=== PATIENT | female | born 1980 | race Caucasian/White ===

== ENCOUNTER 2018-10-20 09:29 | Emergency (ER) | payer MEDICAID ==
--- NOTE | 2018-10-20 09:54 | EDM.PDOC ---
ED HPI GENERAL MEDICAL PROBLEM - General Chief Complaint: Respiratory Problem Stated Complaint: RESPIRATORY ISSUES Time Seen by Provider: 10/20/18 09:53 Source of Information: Reports: Patient History Limitations: Reports: No Limitations - History of Present Illness INITIAL COMMENTS - FREE TEXT/NARRATIVE: 38-year-old female presents the ED for evaluation of severe paroxysmal cough to the point of emesis 1 this morning. For hoarse voice. She claims she's been ill with upper respiratory tract infection and coughing for better part of 2 weeks. Questionable intermittent fever and chills. Dizzy with standing this morning. Appetite has not been the best. Denies diarrhea. Planes of left ear pain. Sore throat paroxysmal nonproductive cough. She is currently on Augmentin 875 mg/125 mg tablets twice a day started 2 days ago the clinic. She is also on Tessalon Perles which she's not finding all that helpful in terms of controlling cough. She did not have a flu shot this year. Onset: Gradual Onset Date: 10/06/18 Duration: Week(s):, Getting Worse Location: Reports: Face (Left ear pain), Chest Quality: Reports: Ache (Left ear ache), Other (Leota Randy nonproductive cough) Severity: Moderate Improves with: Reports: None Worsens with: Reports: Other (Worse with lying down.) Context: Denies: Activity, Exercise, Lifting, Sick Contact, Trauma, Other Associated Symptoms: Reports: Chest Pain, Cough, Fever/Chills, Loss of Appetite , Malaise (Nonproductive), Nausea/Vomiting, Shortness of Breath, Weakness. 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 - Related Data Allergies Allergy/AdvReac Type Severity Reaction Status Date / Time erythromycin base Allergy Rash Verified 10/20/18 09:40 ibuprofen [From Motrin] Allergy Anaphylactic Verified 10/20/18 09:40 Shock Iodinated Contrast- Oral and Allergy Anaphylactic Verified 10/20/18 09:40 IV Dye Shock ketorolac [From Toradol] Allergy Anaphylactic Verified 10/20/18 09:40 Shock meloxicam [From Mobic] Allergy Anaphylactic Verified 10/20/18 09:40 Shock prednisone Allergy Anaphylactic Verified 10/20/18 09:40 Shock tramadol Allergy Anaphylactic Verified 10/20/18 09:40 Shock iv contrast Allergy Anxiety Uncoded 10/20/18 09:40 Home Meds: Home Meds SUMAtriptan [Imitrex] 25 mg PO DAILY PRN 05/07/18 [History] Amoxicillin 875 mg PO BID 10/20/18 [History] Benzonatate [Tessalon Perle] 100 mg PO DAILY 10/20/18 [History] Hydrocodone/Chlorphen P-Stirex [Tussionex Pennkinetic Susp] 5 ml PO Q12H PRN # 60 ml 10/20/18 [Rx] Past Medical History HEENT History: Reports: None Cardiovascular History: Reports: Arrhythmia, Other (See Below) Other Cardiovascular History: low blood pressure Respiratory History: Reports: Asthma Other Respiratory History: childhood asthma Gastrointestinal History: Reports: None Genitourinary History: Reports: 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: Reports: None, Musculoskeletal History: Reports: Back Pain, Chronic Other Musculoskeletal History: lumbago Neurological History: Reports: Migraines Psychiatric History: Reports: Anxiety, None, Panic Attack Endocrine/Metabolic History: Reports: None, Obesity/BMI 30+ Hematologic History: Reports: Blood Transfusion(s), None Immunologic History: Reports: None Oncologic (Cancer) History: Reports: None Dermatologic History: Reports: None - Infectious Disease History Infectious Disease History: Reports: None - Past Surgical History Musculoskeletal Surgical History: Reports: Arthroscopic Procedure, Shoulder Surgery Social & Family History - Family History Family Medical History: Noncontributory - Caffeine Use Caffeine Use: Reports: Coffee, None - Living Situation & Occupation Living situation: Reports: Single, with Significant Other (Fiance) Occupation: Unemployed ED ROS GENERAL - Review of Systems Review Of Systems: See Below Constitutional: Reports: Fever, Chills, Malaise, Weakness, Fatigue, Decreased Appetite HEENT: Reports: Ear Pain, Sinus Problem (Sinus congestion clinically). Denies: Glasses, Hearing Loss Respiratory: Reports: Shortness of Breath, Cough. Denies: Wheezing, Pleuritic Chest Pain, Sputum, Hemoptysis Cardiovascular: Reports: Chest Pain (Central chest pain with coughing), Dyspnea on Exertion Endocrine: Reports: Fatigue GI/Abdominal: Reports: Decreased Appetite, Vomiting (Vomited once this morning from coughing a posttussive cough) : Reports: No Symptoms Musculoskeletal: Reports: No Symptoms Skin: Reports: No Symptoms Neurological: Reports: No Symptoms Psychiatric: Reports: No Symptoms ED EXAM, GENERAL - Physical Exam Exam: See Below Exam Limited By: No Limitations General Appearance: Alert, WD/WN, No Apparent Distress, Other (Afebrile. Vital signs are normal. Blood pressures a little on the low side at 94/43 she states she normally runs quite low.) Eye Exam: Bilateral Eye: Normal Inspection Ears: Normal TMs, Other (She has pain to touch the left earlobe and straining the ear canal but no signs of an otitis externa or otitis media on exam.) Throat/Mouth: Other (Oropharynx is free of infection. Prominence of her taste buds is noted on the posterior tongue.) Neck: Normal Inspection, Supple, Non-Tender, Full Range of Motion. No: Lymphadenopathy (L), Lymphadenopathy (R) Respiratory/Chest: No Respiratory Distress, Lungs Clear, Normal Breath Sounds, No Accessory Muscle Use Cardiovascular: Normal Peripheral Pulses, Regular Rate, Rhythm, No Edema, No Murmur, No Rub Peripheral Pulses: 3+: Posterior Tibial (L), Posterior Tibial (R), Dorsalis Pedis (L), Dorsalis Pedis (R) GI/Abdominal: Normal Bowel Sounds, Soft, Non-Tender, No Organomegaly, No Abnormal Bruit, No Mass, Pelvis Stable Back Exam: Normal Inspection, Full Range of Motion. No: CVA Tenderness (L), CVA Tenderness (R) Extremities: Normal Inspection, Normal Range of Motion, Non-Tender, No Pedal Edema Neurological: Alert, Oriented, CN II-XII Intact, Normal Cognition Psychiatric: Normal Affect, Normal Mood Skin Exam: Warm, Dry, Intact, Normal Color, No Rash Course - Vital Signs Last Recorded V/S: Last Vital Signs Temp 36.9 C 10/20/18 09:41 Pulse 74 10/20/18 09:41 Resp 18 10/20/18 09:41 BP 94/43 L 10/20/18 09:41 Pulse Ox 98 10/20/18 09:41 - Orders/Labs/Meds Orders: Active Orders 24 hr Category Date Time Status Chest 1V Frontal [CR] Stat Exams 10/20/18 10:05 Taken - Radiology Interpretation Free Text/Narrative:: 38-year-old female presents to the ED with a paroxysmal nonproductive cough for the better part of 2 weeks. The point of emesis 1 this morning. She started on Augmentin 875/125 mg tablets for bronchitis 2 days ago. She is using Tessalon Perles for cough relief which are all helping all that much. She's afebrile since presentation. Clinically she does have some sinus congestion. Complaining of ear pain but examination is normal. Oropharynx is normal. Chest is clear to stage percussion without any wheezes or adventitial sounds. Plan influenza screen. One view chest to be obtained. - Re-Assessments/Exams Free Text/Narrative Re-Assessment/Exam: 10/20/18 10:24 patient refused measles swab for influenza. Therefore the order was canceled. One view chest x-ray is been completed. Cardiac silhouette is within normal limits. Right pulmonary artery is easily visible. There is no consolidated infiltrate to suggest a pneumonia. Plan continue her current antibiotic regime which was just started 2 days ago and is just starting to work. Will give her Tussionex cough syrup 5 mils every 12 hours when necessary for cough relief. Departure - Departure Time of Disposition: 10:25 Disposition: Home, Self-Care 01 Condition: Fair Clinical Impression: Bronchitis - Discharge Information *PRESCRIPTION DRUG MONITORING PROGRAM REVIEWED*: Not Applicable *COPY OF PRESCRIPTION DRUG MONITORING REPORT IN PATIENT ADRI: Not Applicable Prescriptions: Hydrocodone/Chlorphen P-Stirex [Tussionex Pennkinetic Susp] 5 ml PO Q12H PRN # 60 ml PRN Reason: cough relief Instructions: Acute Bronchitis, Adult Referrals: Arcadio Anderson PA-C [Primary Care Provider] - Forms: ED Department Discharge Additional Instructions: Evaluation the emergent today in regards to viral upper respiratory tract infection with sinus congestion and bronchitis. Influenza screen was not done as you could not tolerate the nasal swabs. Test x-ray done is within normal limits showing no signs of pneumonia. But at this time is therefore to continue the Augmentin that was started in the clinic 2 days ago as it is just starting to work today. This will help with sinus infection and bronchitis. Cough relief will be changed to Tussionex 5 mils every 12 hours needed for cough relief. Suggest taking miss a good hour before went to bed as it takes an hour to work. It can be taken with food in the stomach. Expect gradual improvement over the next 3 days. - My Orders Last 24 Hours: My Active Orders 10/20/18 10:05 Chest 1V Frontal [CR] Stat - Assessment/Plan Last 24 Hours: My Active Orders 10/20/18 10:05 Chest 1V Frontal [CR] Stat
--- NOTE | 2018-10-21 08:24 | CR ---
Chest: Portable view of the chest was obtained. Comparison: No prior chest x-ray is available. Heart size and mediastinum are normal. Lungs are clear. Bony structures appear unremarkable. Surgical clips are seen from prior cholecystectomy. Impression: 1. Nothing acute is appreciated on portable chest x-ray. Diagnostic code #2
== END 2018-10-20 10:42 | disposition home or self-care (01) ==
LOC: JD.ED 09:29
DX: J40 Bronchitis, not specified as acute or chronic (principal); H92.02 Otalgia, left ear; G43.909 Migraine, unspecified, not intractable, without status migrainosus; F17.210 Nicotine dependence, cigarettes, uncomplicated; Z79.2 Long term (current) use of antibiotics; Z79.899 Other long term (current) drug therapy; Z88.1 Allergy status to other antibiotic agents; Z88.6 Allergy status to analgesic agent; Z91.041 Radiographic dye allergy status; Z88.5 Allergy status to narcotic agent; Z88.8 Allergy status to other drugs, medicaments and biological substances; Z98.890 Other specified postprocedural states
CPT/HCPCS: 71045; 71045-26; 99283

== ENCOUNTER 2018-11-14 17:31 | Emergency (ER) | payer MEDICAID ==
--- NOTE | 2018-11-14 18:00 | EDM.PDOC ---
ED HPI GENERAL MEDICAL PROBLEM - General Chief Complaint: Respiratory Problem Stated Complaint: COUGH Time Seen by Provider: 11/14/18 17:49 Source of Information: Reports: Patient, RN Notes Reviewed - History of Present Illness INITIAL COMMENTS - FREE TEXT/NARRATIVE: 38 year old female with cough, sinus holly for about 3 wks, was getting better and than about 4 days ago started getting much worse, Has been on amox., zpack , doxy. Seen at clinic today, prescribed an inhaler and told to use mucinex. Frustrated that she is not better having just barely started those meds. chest/ear Pain Score (Numeric/FACES): 6 - Related Data Allergies Allergy/AdvReac Type Severity Reaction Status Date / Time erythromycin base Allergy Rash Verified 11/14/18 17:56 ibuprofen [From Motrin] Allergy Anaphylactic Verified 11/14/18 17:56 Shock Iodinated Contrast- Oral and Allergy Anaphylactic Verified 11/14/18 17:56 IV Dye Shock ketorolac [From Toradol] Allergy Anaphylactic Verified 11/14/18 17:56 Shock meloxicam [From Mobic] Allergy Anaphylactic Verified 11/14/18 17:56 Shock prednisone Allergy Anaphylactic Verified 11/14/18 17:56 Shock tramadol Allergy Anaphylactic Verified 11/14/18 17:56 Shock iv contrast Allergy Anxiety Uncoded 11/14/18 17:56 Home Meds: Home Meds SUMAtriptan [Imitrex] 25 mg PO DAILY PRN 05/07/18 [History] Ondansetron [Zofran ODT] 8 mg PO Q6H PRN 11/14/18 [History] guaiFENesin/Phenylephrine HCl [Mucinex Cold] 5 ml PO BID 11/14/18 [History] Past Medical History HEENT History: Reports: None Cardiovascular History: Reports: Arrhythmia, Other (See Below) Other Cardiovascular History: low blood pressure Respiratory History: Reports: Asthma Other Respiratory History: childhood asthma Gastrointestinal History: Reports: None Genitourinary History: Reports: None REHAB TECH History: Reports: None, Musculoskeletal History: Reports: Back Pain, Chronic Other Musculoskeletal History: lumbago Neurological History: Reports: Migraines Psychiatric History: Reports: Anxiety, None, Panic Attack Endocrine/Metabolic History: Reports: None, Obesity/BMI 30+ Hematologic History: Reports: Blood Transfusion(s), None Immunologic History: Reports: None Oncologic (Cancer) History: Reports: None Dermatologic History: Reports: None - Infectious Disease History Infectious Disease History: Reports: None - Past Surgical History Musculoskeletal Surgical History: Reports: Arthroscopic Procedure, Shoulder Surgery Social & Family History - Family History Family Medical History: Noncontributory - Caffeine Use Caffeine Use: Reports: Coffee, None - Living Situation & Occupation Living situation: Reports: Single, with Significant Other (Fiance) Occupation: Unemployed ED ROS GENERAL - Review of Systems Review Of Systems: See Below Constitutional: Reports: Fever, Chills HEENT: Reports: Rhinitis, Sinus Problem, Throat Pain Respiratory: Reports: Cough, Sputum (scant). Denies: Shortness of Breath, Wheezing Cardiovascular: Reports: Chest Pain (central chest with coughing) GI/Abdominal: Denies: Abdominal Pain, Diarrhea, Vomiting Musculoskeletal: Reports: Other (some achiness) Skin: Denies: Rash ED EXAM, GENERAL - Physical Exam Exam: See Below General Appearance: Alert, Mild Distress Eye Exam: Bilateral Eye: PERRL Ears: Normal External Exam, Normal Canal, Normal TMs Throat/Mouth: Normal Inspection Head: Atraumatic Neck: Supple, Full Range of Motion Respiratory/Chest: No Respiratory Distress, Lungs Clear, Normal Breath Sounds. No: Rhonchi, Wheezing Cardiovascular: Tachycardia Back Exam: No: CVA Tenderness (L), CVA Tenderness (R) Extremities: Normal Inspection. No: Pedal Edema, Leg Pain Neurological: Alert, Oriented, No Motor/Sensory Deficits Skin Exam: Warm, Dry, Intact, Normal Color Course - Vital Signs Last Recorded V/S: Last Vital Signs Temp 98.4 F 11/14/18 17:48 Pulse 108 H 11/14/18 17:48 Resp 18 11/14/18 17:48 BP 114/80 11/14/18 17:48 Pulse Ox 98 11/14/18 17:48 - Re-Assessments/Exams Free Text/Narrative Re-Assessment/Exam: 11/14/18 19:56 Flu screen at clinic earlier today was neg. Lungs are clear, CXR not clinically indicated, sats are good, she is breathing and moving air comfortably. She is cycling one virus after another, spent considerable time explaining to her that her current sx are a new infection, not what she caught 3 wks ago, discharge instr. as documented. Departure - Departure Time of Disposition: 18:11 Disposition: Home, Self-Care 01 Condition: Fair Clinical Impression: Viral upper respiratory illness - Discharge Information Instructions: Upper Respiratory Infection, Adult, [id number] Referrals: Arcadio Anderson PA-C [Primary Care Provider] - Forms: ED Department Discharge Additional Instructions: continue to use the mucinex, inhaler to help treat your symptoms of the bronchitis caused by the new viral infection you have on top of what you had 2 to 3 weeks ago. Vaporizer or steam as needed, you should feel much better in 2 to 3 days, follow up clinic if not much better within 2 to 3 days as expected.
== END 2018-11-14 18:18 | disposition home or self-care (01) ==
LOC: JD.ED 17:31
DX: J06.9 Acute upper respiratory infection, unspecified (principal); G43.909 Migraine, unspecified, not intractable, without status migrainosus; Z79.899 Other long term (current) drug therapy; Z88.6 Allergy status to analgesic agent; Z88.1 Allergy status to other antibiotic agents; Z88.5 Allergy status to narcotic agent; Z91.041 Radiographic dye allergy status
CPT/HCPCS: 99282; 99283

== ENCOUNTER 2018-11-16 09:46 | Emergency (ER) | payer MEDICAID ==
--- NOTE | 2018-11-16 10:01 | EDM.PDOC ---
ED HPI GENERAL MEDICAL PROBLEM - General Chief Complaint: Respiratory Problem Stated Complaint: RESPIRATORY ISSUES Time Seen by Provider: 11/16/18 10:00 Source of Information: Reports: Patient History Limitations: Reports: No Limitations - History of Present Illness INITIAL COMMENTS - FREE TEXT/NARRATIVE: 38-year-old female presents to the ED due to persistent upper respiratory tract infection with harsh paroxysmal productive cough to the point of emesis. Patient is been seen multiple occasions at the clinic over the last 4-6 weeks due to bronchitis and wheezing. She states she did have an influenza screen which proved to be negative. She states she's had a course of doxycycline a course of azithromycin and a another antibiotic without any improvement. This morning she was coughing to the point of emesis. She also reports increased shortness of breath on exertion and with lying down. She has no history of formal asthma. He has been using a metered-dose inhaler of albuterol but doesn' t feel is helping much. Acting complaint is left ear pain particular to touch and she's not able to lie on the left side Onset: Gradual Onset Date: 10/12/18 Duration: Week(s):, Chronic Location: Reports: Chest (Chronic productive cough with shortness of breath and him emesis secondary to vomiting) Quality: Reports: Ache (Central chest pain from coughing so much) Severity: Moderate Improves with: Reports: None Worsens with: Reports: Other (Exertion, exposure to cold air. Lying down.) Context: Denies: Activity, Exercise, Lifting, Sick Contact, Trauma, Other Associated Symptoms: Reports: Chest Pain, Cough, cough w sputum, Headaches, Loss of Appetite, Shortness of Breath, Other (Left ear pain). 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 (see below) Throat Pain Score (Numeric/FACES): 7 - Related Data Allergies Allergy/AdvReac Type Severity Reaction Status Date / Time erythromycin base Allergy Rash Verified 11/16/18 10:02 Iodinated Contrast- Oral and Allergy Anaphylactic Verified 11/16/18 10:02 IV Dye Shock ketorolac [From Toradol] Allergy Anaphylactic Verified 11/16/18 10:02 Shock meloxicam [From Mobic] Allergy Anaphylactic Verified 11/16/18 10:02 Shock prednisone Allergy Anaphylactic Verified 11/16/18 10:02 Shock tramadol Allergy Anaphylactic Verified 11/16/18 10:02 Shock Home Meds: Home Meds Ondansetron [Zofran ODT] 8 mg PO Q6H PRN 11/14/18 [History] guaiFENesin/Phenylephrine HCl [Mucinex Cold] 5 ml PO BID 11/14/18 [History] Albuterol Sulfate [Proair Hfa] 2 puff IH Q4H PRN 11/16/18 [History] Albuterol [Proventil Neb Soln] 2.5 mg NEB Q4H PRN #60 neb 11/16/18 [Rx] Albuterol/Ipratropium [DuoNeb 3.0-0.5 MG/3 ML] 3 ml NEB QID #60 neb 11/16/18 [Rx ] Dexamethasone 4 mg PO BID #14 tablet 11/16/18 [Rx] Gentamicin [Garamycin 0.3% Ophth Soln] 15 ml TOP QID #1 bottle 11/16/18 [Rx] Past Medical History HEENT History: Reports: None Cardiovascular History: Reports: Arrhythmia, Other (See Below) Other Cardiovascular History: low blood pressure Respiratory History: Reports: Asthma Other Respiratory History: childhood asthma Gastrointestinal History: Reports: None Genitourinary History: Reports: None ENVIRONMENTAL HEALTH AND 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 INTERN History: Reports: None, Musculoskeletal History: Reports: Back Pain, Chronic Other Musculoskeletal History: lumbago Neurological History: Reports: Migraines Psychiatric History: Reports: Anxiety, None, Panic Attack Endocrine/Metabolic History: Reports: None, Obesity/BMI 30+ Hematologic History: Reports: Blood Transfusion(s), None Immunologic History: Reports: None Oncologic (Cancer) History: Reports: None Dermatologic History: Reports: None - Infectious Disease History Infectious Disease History: Reports: None - Past Surgical History Musculoskeletal Surgical History: Reports: Arthroscopic Procedure, Shoulder Surgery Social & Family History - Family History Family Medical History: Noncontributory - Caffeine Use Caffeine Use: Reports: Coffee, None - Living Situation & Occupation Living situation: Reports: Single, with Significant Other (Fiance) Occupation: Unemployed ED ROS GENERAL - Review of Systems Review Of Systems: See Below Constitutional: Reports: No Symptoms HEENT: Reports: Ear Pain (Left ear pain to touch) Respiratory: Reports: Shortness of Breath, Wheezing, Cough, Sputum. Denies: Pleuritic Chest Pain, Hemoptysis Cardiovascular: Reports: Chest Pain (Secondary to coughing with ribs hurting as well.) Endocrine: Reports: Fatigue (From not being able to get adequate sleep.) GI/Abdominal: Reports: No Symptoms : Reports: No Symptoms Musculoskeletal: Reports: No Symptoms Skin: Reports: No Symptoms Neurological: Reports: No Symptoms Psychiatric: Reports: No Symptoms Hematologic/Lymphatic: Reports: No Symptoms Immunologic: Reports: No Symptoms ED EXAM, GENERAL - Physical Exam Exam: See Below Exam Limited By: No Limitations General Appearance: Alert, WD/WN, Moderate Distress (Peers very tired. She does have a very paroxysmal productive sounding cough) Eye Exam: Bilateral Eye: Normal Inspection Ears: Other (Patient has a left otitis externa with marked pain on pulling or tugging of the left earlobe. The tympanic membrane is normal.) Throat/Mouth: Other Head: Atraumatic, Normocephalic Neck: Normal Inspection, Supple, Non-Tender, Full Range of Motion, Lymphadenopathy (L) (Mild left lymphadenopathy which is tender.). No: Lymphadenopathy (R) Respiratory/Chest: No Respiratory Distress, Chest Non-Tender, Decreased Breath Sounds, Wheezing (Decreased breath sounds to the lower 50% of lung figueredo bilaterally with bilateral expiratory wheezes. On expiration throughout all lung figueredo.). No: Normal Breath Sounds Cardiovascular: Normal Peripheral Pulses, Regular Rate, Rhythm, No Edema, No Gallop, No Murmur, No Rub Peripheral Pulses: 3+: Posterior Tibial (L), Posterior Tibial (R), Dorsalis Pedis (L), Dorsalis Pedis (R) GI/Abdominal: Normal Bowel Sounds, Soft, No Organomegaly, No Abnormal Bruit, No Mass, Pelvis Stable, Other Back Exam: Normal Inspection, Full Range of Motion. No: CVA Tenderness (L), CVA Tenderness (R) Extremities: Normal Inspection, Normal Range of Motion, Non-Tender, No Pedal Edema Neurological: Alert, Oriented, CN II-XII Intact, Normal Cognition, Normal Gait Course - Vital Signs Last Recorded V/S: Last Vital Signs Temp 36.3 C 11/16/18 09:58 Pulse 90 11/16/18 09:58 Resp 16 11/16/18 09:58 BP 117/74 11/16/18 09:58 Pulse Ox 98 11/16/18 10:36 - Orders/Labs/Meds Orders: Active Orders 24 hr Category Date Time Status RT Aerosol Therapy [RC] ASDIRECTED Care 11/16/18 10:36 Active Meds: Medications Discontinued Medications Generic Name Dose Route Start Last Admin Trade Name Monty PRN Reason Stop Dose Admin Albuterol/Ipratropium 3 ml 11/16/18 10:36 11/16/18 11:15 Duoneb 3.0-0.5 Mg/3 Ml NEB 11/16/18 10:37 3 ml ONETIME ONE Administration - Radiology Interpretation Free Text/Narrative:: 38-year-old female presents to the ED due to chronic severe paroxysmal cough for the better part of 6 weeks. She's been seen multiple times at the clinic and is been treated with 3 different courses of antibiotics including Zithromax and doxycycline and she believes Levaquin. Much relief. She is currently using albuterol inhaler but she doesn't feel it's working either. Coughing to the point of emesis. Can't lie flat at night has to sleep sitting up. She is aware of some wheezing. Does not have a history of asthma denies cigarette smoking. Second problem is pain in her left ear to touch developed over the last 34 days. Emanation confirms a left otitis externa. So be treated with gentamicin eyedrops 2 drops to the left ear 4 times daily for the next 7-8 days to clear up infection. Chest x-ray done is negative for pneumonia. She was treated with a DuoNeb treatment in the ED and this will be continued at home 4 times a day and albuterol to be used in between as needed for wheezing and/or shortness of breath and/or cough relief. She reports that she had anaphylactic reaction to prednisone in the past this is highly suspect. However I will treated with dexamethasone 4 mg twice a day for 7 days to relieve inflammation in her chest. Infection appears to be viral she reports having a negative flu screen in the past 3 weeks. Advise follow-up with her personal care physician in a week's time. Departure - Departure Time of Disposition: 11:34 Disposition: Home, Self-Care 01 Condition: Fair Clinical Impression: Chronic wheezy bronchitis - Discharge Information *PRESCRIPTION DRUG MONITORING PROGRAM REVIEWED*: Not Applicable *COPY OF PRESCRIPTION DRUG MONITORING REPORT IN PATIENT ADRI: Not Applicable Prescriptions: Albuterol [Proventil Neb Soln] 2.5 mg NEB Q4H PRN #60 neb PRN Reason: Wheezing Albuterol/Ipratropium [DuoNeb 3.0-0.5 MG/3 ML] 3 ml NEB QID #60 neb Dexamethasone 4 mg PO BID #14 tablet Gentamicin [Garamycin 0.3% Ophth Soln] 15 ml TOP QID #1 bottle Instructions: Upper Respiratory Infection, Adult, [id number] Referrals: Arcadio Anderson PA-C [Primary Care Provider] - Forms: ED Department Discharge Additional Instructions: Evaluation the emergency room today in regards to persistent paroxysmal cough to the point of emesis as well as pressure and pain left ear. Examination reveals that there is an infection in the left ear canal called otitis externa. This is to be treated with Gentamycin drops -- 2-3 drops to the left ear 4 times daily for the next week. Examination reveals that you're not getting very good air to the lower lobes of your lungs with bilateral significant wheezing. As you have indicated drooping on 3 or 4 courses of antibiotics with no real relief of symptoms is because the symptoms are due to a viral infection. Influenza screen done several weeks ago was negative. And was not repeated. Feels no signs of pneumonia. Treatment is going to be a home nebulizer machine to use DuoNeb similar to what you received in the ED 1 albuterol every 6 hours or 4 times daily for the next 10-12 days and then as needed. Also wrote a prescription for albuterol neb mils to be taken in between the DuoNeb if needed for shortness of breath and/or wheezing. Also dexamethasone 4 mg twice daily for the next 7 days to reduce inflammation in your lungs and reduce wheezing and shortness of breath. Suggest follow-up with your personal doctor in one week's time. - My Orders Last 24 Hours: My Active Orders 11/16/18 10:36 RT Aerosol Therapy [RC] ASDIRECTED - Assessment/Plan Last 24 Hours: My Active Orders 11/16/18 10:36 RT Aerosol Therapy [RC] ASDIRECTED
[2018-11-16] MEDS ORDERED: Albuterol/Ipratropium 3.0-0.5 MG/3 ML Neb Soln NEB ONE (10:36)
--- NOTE | 2018-11-16 11:13 | CR ---
Chest: Frontal view of the chest was obtained. Comparison: Prior chest x-ray of 10/20/18. Heart size and mediastinum are normal. Lungs are clear. Bony structures are grossly intact. Impression: 1. Nothing acute is seen on frontal chest x-ray. Diagnostic code #1
== END 2018-11-16 11:59 | disposition home or self-care (01) ==
LOC: JD.ED 09:46
DX: J40 Bronchitis, not specified as acute or chronic (principal); E66.9 Obesity, unspecified; Z88.1 Allergy status to other antibiotic agents; Z88.8 Allergy status to other drugs, medicaments and biological substances; Z79.899 Other long term (current) drug therapy
CPT/HCPCS: 71045; 71045-26; 94640; 99283; 99283-25; J7620-GY

== ENCOUNTER 2018-11-26 07:00 | Emergency (ER) | payer MEDICAID ==
--- NOTE | 2018-11-26 08:05 | EDM.PDOC ---
ED HPI GENERAL MEDICAL PROBLEM - General Chief Complaint: Respiratory Problem Stated Complaint: EAR PAIN AND COUGH Time Seen by Provider: 11/26/18 07:18 Source of Information: Reports: Patient, RN Notes Reviewed - History of Present Illness INITIAL COMMENTS - FREE TEXT/NARRATIVE: Patient states she has been ill with a cough for about a month. However upon further questioning she has had a lot of some type of upper respiratory, cough, bronchitis infection problems for the past month or so but was actually getting better this past week and then became more ill with much worsening cough yesterday and today. She feels that she has had low-grade fever at home yesterday and today, chills. She also does have some nasal and sinus congestion. Her cough is mostly dry and nonproductive. She does smoke, occasionally". As had numerous courses of antibiotics over the past month. At this time working primarily with her albuterol nebulizer. Left Ear Pain Score (Numeric/FACES): 10 Headache Pain Score (Numeric/FACES): 8 Throat Pain Score (Numeric/FACES): 10 - Related Data Allergies Allergy/AdvReac Type Severity Reaction Status Date / Time erythromycin base Allergy Rash Verified 11/26/18 07:13 Iodinated Contrast- Oral and Allergy Anaphylactic Verified 11/26/18 07:13 IV Dye Shock ketorolac [From Toradol] Allergy Anaphylactic Verified 11/26/18 07:13 Shock meloxicam [From Mobic] Allergy Anaphylactic Verified 11/26/18 07:13 Shock prednisone Allergy Anaphylactic Verified 11/26/18 07:13 Shock tramadol Allergy Anaphylactic Verified 11/26/18 07:13 Shock Home Meds: Home Meds Ondansetron [Zofran ODT] 8 mg PO Q6H PRN 11/14/18 [History] Albuterol Sulfate [Proair Hfa] 2 puff IH Q4H PRN 11/16/18 [History] Albuterol [Proventil Neb Soln] 2.5 mg NEB Q4H PRN #60 neb 11/16/18 [Rx] Albuterol/Ipratropium [DuoNeb 3.0-0.5 MG/3 ML] 3 ml NEB QID #60 neb 11/16/18 [Rx ] Dexamethasone 4 mg PO BID #14 tablet 11/16/18 [Rx] Gentamicin [Garamycin 0.3% Ophth Soln] 15 ml TOP QID #1 bottle 11/16/18 [Rx] Past Medical History HEENT History: Reports: None Cardiovascular History: Reports: Arrhythmia, Other (See Below) Other Cardiovascular History: low blood pressure Respiratory History: Reports: Asthma Other Respiratory History: childhood asthma Gastrointestinal History: Reports: None Genitourinary History: Reports: None 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: Reports: None, Musculoskeletal History: Reports: Back Pain, Chronic Other Musculoskeletal History: lumbago Neurological History: Reports: Migraines Psychiatric History: Reports: Anxiety, None, Panic Attack Endocrine/Metabolic History: Reports: None, Obesity/BMI 30+ Hematologic History: Reports: Blood Transfusion(s), None Immunologic History: Reports: None Oncologic (Cancer) History: Reports: None Dermatologic History: Reports: None - Infectious Disease History Infectious Disease History: Reports: None - Past Surgical History Head Surgeries/Procedures: Reports: None Musculoskeletal Surgical History: Reports: Arthroscopic Procedure, Shoulder Surgery Social & Family History - Family History Family Medical History: Noncontributory - Tobacco Use Smoking Status *Q: Current Every Day Smoker Years of Tobacco use: 20 Packs/Tins Daily: 0.3 Second Hand Smoke Exposure: Yes - Caffeine Use Caffeine Use: Reports: Coffee, Energy Drinks, Soda - Recreational Drug Use Recreational Drug Use: No - Living Situation & Occupation Living situation: Reports: Single, with Significant Other (Fiance) Occupation: Unemployed ED ROS GENERAL - Review of Systems Review Of Systems: See Below Constitutional: Reports: Fever, Chills (Low-grade) HEENT: Reports: Throat Pain Respiratory: Reports: Cough (Severe), Sputum (, frequent, repetitive). Denies: Shortness of Breath (Mild) Cardiovascular: Reports: Chest Pain ( scant ) GI/Abdominal: Denies: Abdominal Pain, Nausea, Vomiting Musculoskeletal: Reports: Other (Is been some achiness) Skin: Denies: Rash Neurological: Denies: Headache ED EXAM, GENERAL - Physical Exam Exam: See Below General Appearance: Alert, Other (Frequent nonproductive cough) Throat/Mouth: Normal Inspection Head: Atraumatic Neck: Supple Respiratory/Chest: No Respiratory Distress, Lungs Clear, Normal Breath Sounds. No: Rhonchi, Wheezing Cardiovascular: Tachycardia GI/Abdominal: Soft, Non-Tender Extremities: Normal Range of Motion. No: Pedal Edema, Leg Pain Neurological: Alert, Oriented, No Motor/Sensory Deficits Skin Exam: Warm, Dry, Normal Color Course - Vital Signs Last Recorded V/S: Last Vital Signs Temp 97.9 F 11/26/18 08:53 Pulse 82 11/26/18 08:53 Resp 18 11/26/18 08:53 BP 121/88 11/26/18 08:53 Pulse Ox 99 11/26/18 08:53 - Orders/Labs/Meds Labs: Laboratory Tests 11/26/18 Range/Units 07:58 WBC 8.09 (3.98-10.04) K/mm3 RBC 4.71 (3.98-5.22) M/mm3 Hgb 14.7 (11.2-15.7) gm/L Hct 44.7 (34.1-44.9) % MCV 94.9 H (79.4-94.8) fl MCH 31.2 (25.6-32.2) pg MCHC 32.9 (32.2-35.5) g/dl RDW Std Deviation 40.9 (36.4-46.3) fL Plt Count 252 (182-369) K/mm3 MPV 9.0 L (9.4-12.3) fl Neut % (Auto) 54.9 (34.0-71.1) % Lymph % (Auto) 34.9 (19.3-51.7) % Tama % (Auto) 6.8 (4.7-12.5) % Eos % (Auto) 2.8 (0.7-5.8) Baso % (Auto) 0.1 (0.1-1.2) % Neut # (Auto) 4.44 (1.56-6.13) K/mm3 Lymph # (Auto) 2.82 (1.18-3.74) K/mm3 Tama # (Auto) 0.55 H (0.24-0.36) K/mm3 Eos # (Auto) 0.23 (0.04-0.36) K/mm3 Baso # (Auto) 0.01 (0.01-0.08) K/mm3 - Re-Assessments/Exams Free Text/Narrative Re-Assessment/Exam: 11/26/18 14:12 Chest x-ray was normal, influenza screen negative white blood count relatively normal, discharge instructions as documented. Departure - Departure Time of Disposition: 08:39 Disposition: Home, Self-Care 01 Condition: Fair Clinical Impression: Viral upper respiratory infection, Bronchitis - Discharge Information Instructions: Viral Respiratory Infection, [id number], Acute Bronchitis, Adult Referrals: Arcadio Anderson PA-C [Primary Care Provider] - Forms: ED Department Discharge Additional Instructions: Rest, vaporizer or steam as needed, continue albuterol nebs every 4-6 hours as needed for severe cough, wheezing or difficulty breathing. Follow-up with medical provider if not much better within 4-5 days as expected.
--- NOTE | 2018-11-26 08:54 | CR ---
Chest: Portable view of the chest was obtained. Comparison: Prior chest x-ray 11/16/18. Heart size and mediastinum are normal. Lungs are clear. Bony structures are grossly intact. Impression: 1. Nothing acute is seen on portable chest x-ray. Diagnostic code #1
== END 2018-11-26 08:53 | disposition home or self-care (01) ==
LOC: JD.ED 07:00
DX: J40 Bronchitis, not specified as acute or chronic (principal); J06.9 Acute upper respiratory infection, unspecified; H92.02 Otalgia, left ear; E66.9 Obesity, unspecified; Z88.1 Allergy status to other antibiotic agents; Z88.5 Allergy status to narcotic agent; F17.210 Nicotine dependence, cigarettes, uncomplicated; Z88.8 Allergy status to other drugs, medicaments and biological substances; Z91.041 Radiographic dye allergy status; Z88.6 Allergy status to analgesic agent
CPT/HCPCS: 36415; 71045; 71045-26; 85025; 87804; 99282; 99283